=== PATIENT | female | born 1950 | race Caucasian/White ===

== ENCOUNTER 2018-01-16 07:45 | Outpatient (CLI) | payer MEDICARE, MEDICAID | END 2018-01-16 23:59 | disposition home or self-care (01) | LOC: NM 07:45 | PROVIDERS: ATTEND Internal Medicine Cardiovascular Disease | DX: I10 Essential (primary) hypertension (principal); I20.8 Other forms of angina pectoris; R07.9 Chest pain, unspecified | CPT/HCPCS: 78452; A9502 ==